=== PATIENT | male | born 1985 | race Caucasian/White ===

== ENCOUNTER → 2017-04-25 10:21 | Outpatient (CLI) | payer OTHER, SELFPAY ==
--- NOTE | 2017-04-25 10:32 | RAD_ITS ---
STUDY: X-RAY - ABDOMEN/PELVIS REASON FOR EXAM: Male, 32 years old. Abdominal pain. TECHNIQUE: AP supine and upright views of the abdomen and pelvis. COMPARISON: None. FINDINGS: Normal visualized lung bases. There is a moderate amount of colonic fecal material. There is no demonstrated free abdominal air. The visualized liver, spleen and kidneys are grossly normal in size and morphology. Normal soft tissue structures. Normal visualized osseous structures. RAD/Abd Inc Decub and/or Erect IMPRESSION: Moderate amount of fecal material is seen in the colon. Electronically Signed: Patrick Frye MD at 15:55 EST Tel [phone], Service support ,
== END ==
PROVIDERS: Family Provider Family Medicine; PCP Family Medicine; Visit Provider Family Medicine
DX: R10.9 Unspecified abdominal pain (principal)
CPT/HCPCS: 74019

== ENCOUNTER → 2017-07-21 11:34 | Outpatient (CLI) | payer OTHER, SELFPAY ==
[2017-07-21 14:15] LABS: Absolute Lymphocyte Count 1.96 X10^3/ul (0.83-4.51); Basophil# 0.03 X10^3/uL; Basophil% 0.4 % (0-1); Eosinophil# 0.21 X10^3/uL; Eosinophils% 3.1 % (0-5); Hematocrit 43.6 % (40-54); Hemoglobin 14.6 g/dl (13.0-16.5); Lymphocyte # 1.96 X10^3/ul (4.0); Lymphocyte % 29.1 % (19-41); Mean Corp Hgb Conc 33.5 g/gl (32-36); Mean Corpuscular Hgb 26.7 pg (27.0-32.0); Mean Corpuscular Volume 79.9 fL (80-94); Mean Platelet Vol. 9.5 fl (6.2-12.0); Monocyte# 0.51 X10^3/uL; Monocyte% 7.6 % (0-10); Neutrophil # 4.01 X10^3/uL (2.7-7.7); Neutrophil % 59.7 % (47-70); Platelet Count 328 K/mm3 (150-450); RBC Distribution Width CV 13.7 % (11.6-14.6); RBC Distribution Width SD 39.6 fl (35.1-43.9); Red Blood Count 5.46 M/mm3 (4.6-6.2); White Blood Count 6.7 K/mm3 (4.4-11.0)
[2017-07-21 14:19] LABS: POSITIVE COUNT NO; POSITIVE DIFFERENTIAL NO; POSITIVE MORPHOLOGY NO
[2017-07-21 14:25] LABS: Internal QC Validated? YES +Cl - CLEAR BKGD; Monotest Negative (Negative); Record Kit Lot#, Mono 13171517
[2017-07-21 14:31] LABS: AST(SGOT) 20 U/L (15-37); Alanine Aminotransfer ALT/SGPT 29 U/L (16-61); Albumin, Serum 3.9 g/dL (3.2-5.0); Alkaline Phosphatase 159 U/L (45-117); Anion Gap 6 (5-15); BUN 8 mg/dL (7-18); BUN/Creat Ratio 10.4 RATIO (10-20); Calcium,Total 8.9 mg/dL (8.5-10.1); Chloride 108 mmol/L (98-107); Creatinine, Serum 0.77 mg/dL (0.70-1.30); EST Glomerular Filtration Rate 126 mL/min (>60); Est Glom Filt Rate - Afr Amer 152 mL/min (>60); Glucose 86 mg/dL (74-106); Protein, Total 7.9 g/dL (6.4-8.2); Sodium Level 139 mmol/L (136-145); Thyroid Stim Hormone (TSH) 1.12 uIU/mL (0.358-3.74)
== END ==
PROVIDERS: Family Provider Family Medicine; PCP Family Medicine; Visit Provider Family Medicine
DX: R53.81 Other malaise (principal); R53.83 Other fatigue
CPT/HCPCS: 36415; 80053; 84443; 85025; 86308

== ENCOUNTER → 2018-07-14 | Outpatient (CLI) | payer OTHER, SELFPAY ==
[2018-07-14 12:37] LABS: Absolute Lymphocyte Count 2.09 X10^3/ul (0.83-4.51); Absolute Neutrophil Count 5.4 X10^3/uL (2.0-7.7); Basophil# 0.04 X10^3/uL; Basophil% 0.5 % (0-1); Eosinophil# 0.15 X10^3/uL; Eosinophils% 1.8 % (0-5); Hematocrit 42.2 % (40-54); Hemoglobin 13.7 g/dl (13.0-16.5); Lymphocyte # 2.09 X10^3/ul (4.0); Lymphocyte % 25.2 % (19-41); Mean Corp Hgb Conc 32.5 g/gl (32-36); Mean Corpuscular Hgb 26.1 pg (27.0-32.0); Mean Corpuscular Volume 80.5 fL (80-94); Mean Platelet Vol. 9.5 fl (6.2-12.0); Monocyte# 0.64 X10^3/uL; Monocyte% 7.7 % (0-10); Neutrophil # 5.38 X10^3/uL (2.7-7.7); Neutrophil % 64.7 % (47-70); Platelet Count 315 K/mm3 (150-450); RBC Distribution Width CV 13.8 % (11.6-14.6); RBC Distribution Width SD 40.4 fl (35.1-43.9); Red Blood Count 5.24 M/mm3 (4.6-6.2); White Blood Count 8.3 K/mm3 (4.4-11.0)
[2018-07-14 12:47] LABS: POSITIVE COUNT NO; POSITIVE DIFFERENTIAL NO; POSITIVE MORPHOLOGY NO
[2018-07-14 12:51] LABS: ALB/GLOB Ratio 1.1 RATIO (0.9-2.4); AST(SGOT) 26 U/L (15-37); Alanine Aminotransfer ALT/SGPT 49 U/L (16-61); Albumin, Serum 3.8 g/dL (3.2-5.0); Alkaline Phosphatase 156 U/L (45-117); Anion Gap 10 (5-15); BUN 15 mg/dL (7-18); BUN/Creat Ratio 20.5 RATIO (10-20); Calcium,Total 8.7 mg/dL (8.5-10.1); Chloride 106 mmol/L (98-107); Creatinine, Serum 0.73 mg/dL (0.70-1.30); EST Glomerular Filtration Rate 132 mL/min (>60); Est Glom Filt Rate - Afr Amer 160 mL/min (>60); Globulin 3.6 g/dL (2.2-4.2); Glucose 89 mg/dL (74-106); Potassium 3.8 mmol/L (3.5-5.1); Protein, Total 7.4 g/dL (6.4-8.2); Sodium Level 141 mmol/L (136-145); Thyroid Stim Hormone (TSH) 2.35 uIU/mL (0.358-3.74)
[2018-07-14 13:00] LABS: Internal QC Validated? YES +Cl - CLEAR BKGD; Monotest Negative (Negative)
[2018-07-14 14:27] LABS: GGTP 23 U/L (15-85)
== END | disposition home or self-care (01) ==
LOC: MFPLAB 09:36
PROVIDERS: Family Provider Family Medicine; PCP Family Medicine; Referring Provider Family Medicine; Visit Provider Family Medicine
DX: R35.0 Frequency of micturition (principal); R53.81 Other malaise
CPT/HCPCS: 36415; 80053; 82977; 84443; 85025; 86308; 87077; 87086; 87088; 87186

== ENCOUNTER → 2018-08-18 | Outpatient (CLI) | payer OTHER, SELFPAY ==
[2018-08-18 17:57] LABS: GGTP 22 U/L (15-85)
== END | disposition home or self-care (01) ==
LOC: LAB.FUTURE 15:08
PROVIDERS: Family Provider Family Medicine; PCP Family Medicine; Referring Provider Family Medicine; Visit Provider Family Medicine
DX: R74.8 Abnormal levels of other serum enzymes (principal)
CPT/HCPCS: 36415; 82977

== ENCOUNTER → 2018-08-31 | Outpatient (CLI) | payer OTHER, SELFPAY ==
--- NOTE | 2018-08-31 09:51 | US_ITS ---
STUDY: ABDOMINAL ULTRASOUND - RIGHT UPPER QUADRANT REASON FOR VISIT: Male, 33 years old. Elevated liver labs TECHNIQUE: Ultrasound evaluation of the right upper quadrant was performed with real-time and static chavez-scale imaging. TECHNICAL QUALITY: Adequate. COMPARISON: None. FINDINGS: Liver: The liver measures 17 cm. There is increased hepatic echogenicity. The bile ducts are within normal limits. There is hepatic color flow. The direction of portal flow is hepatopetal. There is no demonstrated mass lesion. Gallbladder: Normal distended gallbladder. The gallbladder wall measures 3 mm. There is a negative sonographic Waldrop's sign. There is no pericholecystic fluid. There are no gallstones. Common Bile Duct (C.B.D.): The common bile duct measures 4 mm. Pancreas: Not visualized. Right Kidney: Normal size of the right kidney. The right kidney measures 13 cm. Normal renal cortex. There is no demonstrated renal mass or cyst. There is no right hydronephrosis. US/Abdomen Limited IMPRESSION: Fatty liver. No hepatic lesions identified. Electronically Signed: Israel Estrella, at 17:38 EDT Tel , Service support ,
== END | disposition home or self-care (01) ==
LOC: US 09:45
PROVIDERS: Family Provider Family Medicine; PCP Family Medicine; Referring Provider Family Medicine; Visit Provider Family Medicine
DX: R74.8 Abnormal levels of other serum enzymes (principal)
CPT/HCPCS: 76705

== ENCOUNTER → 2018-09-28 | Outpatient (CLI) | payer OTHER, SELFPAY ==
--- NOTE | 2018-09-28 07:58 | CT_ITS ---
STUDY: CT BRAIN WITHOUT CONTRAST REASON FOR EXAM: Male, 33 years old. Migraine headaches RADIATION DOSAGE (If Supplied By Facility): CTDIvol = ( 44.99 ) mGy, DLP = ( 762.36 ) mGycm TECHNIQUE: Transaxial CT imaging of the brain was performed without administration of intravenous contrast material. Individualized dose optimization techniques were used for this CT. COMPARISON: No relevant priors. FINDINGS: Normal soft tissue structures. Normal calvarium. Normal size ventricles and extra-axial spaces for the patient's age. Normal white matter tracts of the cerebral hemispheres. Normal basal ganglia and thalami. Normal brainstem. Normal cerebellum. There is no intracranial hemorrhage. There are no findings of an acute ischemic infarction. Normal visualized paranasal sinuses. CT/Brain/Head without Contrast IMPRESSION: Normal unenhanced CT scan of the brain. Electronically Signed: Charles Osborne MD at 16:23 EDT , Service support ,
== END | disposition home or self-care (01) ==
PROVIDERS: Family Provider Family Medicine; PCP Family Medicine; Referring Provider Psychiatry & Neurology Neurology; Visit Provider Psychiatry & Neurology Neurology
DX: G43.909 Migraine, unspecified, not intractable, without status migrainosus (principal)
CPT/HCPCS: 70450

== ENCOUNTER → 2019-04-23 | Outpatient (CLI) | payer OTHER, SELFPAY ==
[2019-04-23 12:32] LABS: Absolute Neutrophil Count 4.6 X10^3/uL (2.0-7.7); Basophil# 0.04 X10^3/uL; Basophil% 0.6 % (0-1); Eosinophil# 0.18 X10^3/uL; Eosinophils% 2.6 % (0-5); Hematocrit 44.3 % (40-54); Lymphocyte % 24.5 % (19-41); Mean Corp Hgb Conc 31.6 g/dL (32-36); Mean Corpuscular Hgb 25.6 pg (27.0-32.0); Mean Corpuscular Volume 81.1 fL (80-94); Mean Platelet Vol. 9.6 fl (6.2-12.0); Monocyte# 0.42 X10^3/uL; NRBC Flagged by Analyzer 0 % (0-5); Neutrophil # 4.59 X10^3/uL (2.7-7.7); Platelet Count 331 K/mm3 (150-450); RBC Distribution Width CV 13.6 % (11.6-14.6); RBC Distribution Width SD 39.4 fl (35.1-43.9); Red Blood Count 5.46 M/mm3 (4.6-6.2)
[2019-04-23 13:13] LABS: AST(SGOT) 19 U/L (15-37); Alanine Aminotransfer ALT/SGPT 29 U/L (16-61); Albumin, Serum 3.7 g/dL (3.2-5.0); Alkaline Phosphatase 153 U/L (45-117); Anion Gap 5 (5-15); BUN 10 mg/dL (7-18); BUN/Creat Ratio 12.7 RATIO (10-20); Calcium,Total 8.9 mg/dL (8.5-10.1); Chloride 110 mmol/L (98-107); Creatinine, Serum 0.79 mg/dL (0.70-1.30); EST Glomerular Filtration Rate 120 mL/min (>60); Est Glom Filt Rate - Afr Amer 146 mL/min (>60); Globulin 3.7 g/dL (2.2-4.2); Glucose 94 mg/dL (74-106); Potassium 3.8 mmol/L (3.5-5.1); Protein, Total 7.4 g/dL (6.4-8.2); Sodium Level 140 mmol/L (136-145); Thyroid Stim Hormone (TSH) 1.34 uIU/mL (0.358-3.74)
== END | disposition home or self-care (01) ==
LOC: MFPLAB 10:38
PROVIDERS: PCP Family Medicine; Referring Provider Family Medicine; Visit Provider Family Medicine
DX: R00.2 Palpitations (principal)
CPT/HCPCS: 36415; 80053; 84443; 85025

== ENCOUNTER → 2019-05-07 | Outpatient (CLI) | payer OTHER, SELFPAY ==
[2019-04-27 11:30] VITALS: BMI 46.4
--- NOTE | 2019-05-07 12:51 | ECHOCS_ITS ---
Reason For Study: Palpitations Procedure This was a 2D Doppler, Color Flow transthoracic echocardiogram. Contrast injection was performed. Exam performed in department. Left Ventricle Normal LV size. The estimated ejection fraction is 55 %. No evidence for diastolic dysfunction. No regional wall motion abnormalities noted. Right Ventricle Normal RV size. Normal systolic function. Atria The left atrium is moderately enlarged. Normal right atrium. No doppler evidence for ASD. Mitral Valve There is no mitral valve stenosis. Trivial mitral valve insufficiency. Tricuspid Valve There is no tricuspid stenosis. Trivial tricuspid valve insufficiency. Unable to estimate RV systolic pressure due to insufficient tricuspid regurgitant envelope. Aortic Valve Trisinus/trileaflet aortic valve. There is no aortic stenosis. No aortic valve insufficiency. Pulmonic Valve There is no pulmonic valvular stenosis. No pulmonic valve insufficiency. Great Vessels Normal aortic root. Pericardium/Pleural No pericardial effusion. Medication Diluted definity 3ml given slow IV push to enhance endocardial definition. MMode/2D Measurements & Calculations LVIDd: 4.9 cm IVSd: 1.0 cm Ao root diam: 2.9 cm LVIDs: 2.5 cm LVPWd: 1.0 cm RVDd: 3.9 cm FS: 48.8 % LAV(MOD-bp): 84.2 ml LVAd ap4: 42.9 cm2 SV(MOD-sp4): 91.4 ml LAV(MOD-bp) Indexed: 31.0 ml/m2 EDV(MOD-sp4): 164.4 ml LAV(MOD-sp2): 76.0 ml EDV(sp4-el): 169.9 ml LAV(MOD-sp4): 77.2 ml LVAs ap4: 26.4 cm2 ESV(MOD-sp4): 73.0 ml ESV(sp4-el): 73.3 ml EF(MOD-sp4): 55.6 % EF(sp4-el): 56.8 % SV(sp4-el): 96.6 ml LA A4 area: 24.4 cm2 LA dimension(2D): 4.9 cm RA A4 area: 18.9 cm2 Doppler Measurements & Calculations MV A max alex: 59.6 cm/sec Lat Peak E' Alex: 13.5 cm/sec Med Peak E' Alex: 7.9 cm/sec MV P1/2t max alex: 94.0 cm/sec Ao V2 max: 130.5 cm/sec LV V1 max: 98.5 cm/sec Ao max P.8 mmHg LV V1 max P.9 mmHg Ao V2 mean: 88.9 cm/sec Ao mean P.6 mmHg Ao V2 VTI: 26.2 cm PA V2 max: 121.9 cm/sec TR max alex: 207.4 cm/sec TR max P.2 mmHg Interpretation Summary The estimated ejection fraction is 55 %. No evidence for diastolic dysfunction. The left atrium is moderately enlarged. Trivial tricuspid valve insufficiency. Trivial mitral valve insufficiency. Ordering Physician: China Whitley Referring Physician: China Whitley Performed By: Bev Cobos, RDCS, RVT
== END | disposition home or self-care (01) ==
PROVIDERS: PCP Family Medicine; Referring Provider Specialist; Visit Provider Specialist
DX: R00.2 Palpitations (principal); R07.9 Chest pain, unspecified
CPT/HCPCS: 93306; Q9957; A4216; C8929

== ENCOUNTER 2019-08-09 08:33 | Emergency (ER) | payer OTHER, SELFPAY ==
[2019-06-08 11:10] VITALS: BMI 46.5
[2019-08-09 08:34] VITALS: BP 161/97; PULSE 97; RESP 16; TEMP 36.9; O2SAT 95; BMI 44.9
[2019-08-09 08:41] VITALS: BP 161/97; PULSE 97; RESP 16; TEMP 36.9; O2SAT 95
--- NOTE | 2019-08-09 08:51 | ED.DCSUM_ITS ---
History of Present Illness Chief Complaint: Flank Pain Onset: Today Narrative: Patient presents for the evaluation of right flank pain. He was seen him [facility] on 06 Aug 2019 was diagnosed with a mid ureteral 5 mm right kidney stone. States he has been on Percocet Flomax and nausea medication. He continues to have vomiting and pain. He has had a prior kidney stone was able to pass. He does not see a urologist. He states that last night he was feeling very hot and states he had 102 fever. No cough or shortness of breath or URI symptoms. He denies any foul smell to the urine. No diarrhea. Past Medical History - Allergies and Home Meds Allergies/Adverse Reactions: Allergies No Known Allergies Allergy (Unverified 08/09/19 08:39) Primary Care Physician: Marley Liao MD [Primary Care Provider] - Smoking Status: Never smoker Review of Systems General: Reports: Fever. Denies: Chills, Sweats Eyes: Denies: Visual changes - bilaterally, Diplopia ENT: Denies: Rhinorrhea, Sore throat Cardiovascular: Denies: Chest pain, Palpitations Respiratory: Denies: Dyspnea, Cough, Dyspnea on exertion Gastrointestinal: Reports: Abdominal pain - Right flank pain radiating to the r ight mid abdomen, Nausea, Vomiting. Denies: Diarrhea, Melena, Hematochezia Genitourinary: Denies: Dysuria, Hematuria, Frequency Musculoskeletal: Denies: Back pain, Extremity Pain Skin: Denies: Rash, Wounds Neurological: Denies: Headache, Weakness, Numbness Physical Exam Vital Signs/Narrative: Vital Signs Temp Pulse Resp BP Pulse Ox 08/09/19 08:41 98.4 F 97 16 161/97 H 95 08/09/19 08:34 98.4 F 97 16 161/97 H 95 Inital Vital Signs reviewed: Yes General: Well nourished, Well developed, Obese, No Acute Distress Head: Normocephalic, Atraumatic Eyes: Perrl, EOMI ENT: Moist mucous membranes, No rhinorrhea Neck: Supple, Nontender Cardiovascular: Regular rate, Regular rhythm, No murmurs Respiratory: No distress, CTA bilaterally, Chest nontender Abdomen: Soft, Nontender, Nondistended, Normal bowel sounds Back: Nontender, Normal Inspection Extremities: Nontender, No edema Skin: Normal color, No rash Neurological: Alert, Oriented x3, Cranial nerves II-XII grossly intact, Normal Strength, Normal Sensation Psychological: Normal affect, Normal Mood Diagnostic/Tx/Re-eval - Medical Decision Making Patient's creatinine has risen slightly from 0.7-1.1. His urine is normal. His pain is improved with morphine and Zofran and Toradol. I will refer him to urology. He understands that a 5 mm mid ureteral stone may require surgery but still needs time to see if it will pass. I will write some additional Percocet at a more appropriate dose than 1 per every 8 hours. As Zofran was not helping his nausea I will write for Phenergan. ED Disposition - Plan for ED Patient: Disposition: Home or Assisted Living Diagnosis: Ureterolithiasis, Right flank pain, Vomiting Instructions: ED Renal Stone w Colic Prescriptions: Oxycodone HCl/Acetaminophen [Percocet 5/325] 1 - 2 tablet PO Q6H PRN PRN 5 Days #20 tablet PRN Reason: pain Transmission Status: Received by [id number] proMETHazine tablet [Phenergan] 25 mg PO Q6H PRN PRN #20 tab PRN Reason: Nausea Transmission Status: Pending to [id number] Referrals: Christopher Linn MD [STAFF PHYSICIAN] - As soon as possible Additional Instructions: You have a 5 mm right mid ureteral stone. Your creatinine has elevated from 0.7-1.1. There is no evidence of infection in your urine.
[2019-08-09] MEDS: Ondansetron 4 MG/2 ML Vial IV (08:55)
[2019-08-09] MEDS: Morphine 4 MG/ML Syringe IV (08:55)
[2019-08-09] MEDS: Ketorolac 30 MG/ML Syringe IV (08:56)
[2019-08-09] MEDS: 0.9% Normal Saline 1,000 ML 999 ML IV (08:56)
[2019-08-09 08:58] LABS: Absolute Lymphocyte Count 1.46 X10^3/uL (0.83-4.51); Absolute Neutrophil Count 8.7 X10^3/uL (2.0-7.7); Basophil# 0.04 X10^3/uL; Basophil% 0.3 % (0-1); Eosinophil# 0.08 X10^3/uL; Eosinophils% 0.7 % (0-5); Hematocrit 37.8 % (40-54); Lymphocyte # 1.46 X10^3/ul (4.0); Lymphocyte % 12.7 % (19-41); Mean Corp Hgb Conc 34.4 g/dL (32-36); Mean Corpuscular Hgb 27.1 pg (27.0-32.0); Mean Corpuscular Volume 78.9 fL (80-94); Mean Platelet Vol. 9.2 fl (6.2-12.0); Monocyte# 1.18 X10^3/uL; Monocyte% 10.3 % (0-10); NRBC Flagged by Analyzer 0 % (0-5); Neutrophil # 8.71 X10^3/uL (2.7-7.7); Neutrophil % 75.8 % (47-70); Platelet Count 262 K/mm3 (150-450); RBC Distribution Width CV 13.1 % (11.6-14.6); RBC Distribution Width SD 37.2 fl (35.1-43.9); Red Blood Count 4.79 M/mm3 (4.6-6.2); White Blood Count 11.5 K/mm3 (4.4-11.0)
[2019-08-09 09:00] LABS: Color, Urine Yellow (Yellow); Glucose, Dipstick Normal (Normal); Leukocyte Esterase-Dipstick 25 /ul (Negative); Nitrite-Dipstick Negative (Negative); Occult Blood-Urine 50 /ul (Negative); Protein-Dipstick 30 mg/dl (Negative); Specific Gravity, Urine 1.025 (1.002-1.030); Urine Bilirubin Dipstick Negative (Negative); Urine Clarity Sl. Cloudy (Clear); Urine Urobilinogen 1 mg/dl (Normal)
[2019-08-09 09:03] LABS: Ketone-Dipstick 150 mg/dl (Negative)
[2019-08-09 09:06] LABS: Bacteria 1+ /hpf (None Seen); Mucous, Urine 1+ /hpf (<or=2+); Red Blood Cells-Urine 0-5 SEEN /hpf (0-5); Squamous Epithelial Cells - UA 0-5 SEEN /hpf (0-5); White Blood Cells 0-5 SEEN /hpf (0-5)
[2019-08-09 09:12] LABS: Anion Gap 8 (5-15); BUN 10 mg/dL (7-18); BUN/Creat Ratio 8.6 RATIO (10-20); Calcium,Total 9.1 mg/dL (8.5-10.1); Chloride 106 mmol/L (98-107); Creatinine, Serum 1.16 mg/dL (0.70-1.30); EST Glomerular Filtration Rate 77 mL/min (>60); Est Glom Filt Rate - Afr Amer 93 mL/min (>60); Estimated Creatinine Clearance 105.31 ml/min; Glucose 92 mg/dL (74-106); Potassium 3.7 mmol/L (3.5-5.1); Sodium Level 138 mmol/L (136-145)
[2019-08-09 09:54] VITALS: BP 161/97; PULSE 97; RESP 16; TEMP 36.9; O2SAT 95
--- NOTE | 2019-08-09 10:02 | ED.RN ---
ESTABLISHED PERIPHERAL LINE INFILTRATED. NORMAL SALINE EXTRAVASATED IN LEFT ANTECUBITAL AREA. PT DENIES PAIN. COLD COMPRESS APPLIED, FLUIDS DISCONTINUED. WILL CONTINUE TO MONITOR.
== END 2019-08-09 10:31 | disposition home or self-care (01) ==
PROVIDERS: Emergency Provider Emergency Medicine; PCP Family Medicine
DX: N20.1 Calculus of ureter (principal); R11.10 Vomiting, unspecified; E66.9 Obesity, unspecified; Z79.899 Other long term (current) drug therapy
CPT/HCPCS: 80048; 81001; 85025; 96361; 96374; 96375; 99283; J7030; A4216; J2405

== ENCOUNTER → 2019-08-18 10:45 | Outpatient (CLI) | payer OTHER, SELFPAY ==
[2019-08-09 08:34] VITALS: BMI 44.9
--- NOTE | 2019-08-18 07:45 | RAD_ITS ---
STUDY: X-RAY - ABDOMEN/PELVIS REASON FOR EXAM: Male, 34 years old. PRE OP, RIGHT SIDE KIDNEY STONE TECHNIQUE: Single AP view of the abdomen / pelvis. COMPARISON: Comparison is made with prior study dated April 25, 2017. FINDINGS: There is a moderate amount of colonic fecal material. 8.7 mm x 1 mm calcification overlying the transverse process of the L3 vertebra on the right side. This may represent a mid right ureteral calculus. Normal soft tissue structures. Normal visualized osseous structures. RAD/Abdomen Single View IMPRESSION: Findings suggestive of a 8.7 mm x 1 mm calculus in the midportion of the right ureter. Electronically Signed: Patrick Frye, at 13:23 EDT , Service support ,
[2019-08-18 09:04] VITALS: BP 140/91; PULSE 102; RESP 16; TEMP 35.8; O2SAT 95; BMI 45.1
[2019-08-18] MEDS: Lactated Ringers 1,000 ML 100 ML IV (09:18)
--- NOTE | 2019-08-18 12:37 | SUR.PREOP ---
KUB CAME BACK THAT PATIENT HAD PASSED STONE, HAS ANOTHER ONE IN KIDNEY BUT IT IS NOT CAUSING PAIN HE HAS OPTED TO HAVE NO PROCEDURE DONE TODAY. DCD HOME.
== END ==
LOC: SDC 08:36 → PAT 09-16 10:05
PROVIDERS: PCP Family Medicine; Referring Provider Urology; Visit Provider Urology
DX: N20.0 Calculus of kidney (principal); Z11.59 Encounter for screening for other viral diseases
CPT/HCPCS: 74018; 87635; G2023; J7120; U0004

== ENCOUNTER → 2019-08-30 10:35 | Outpatient (CLI) | payer OTHER, SELFPAY ==
[2019-08-18 09:04] VITALS: BMI 45.1
--- NOTE | 2019-08-30 10:38 | RAD_ITS ---
STUDY: X-RAY - ABDOMEN/PELVIS REASON FOR EXAM: Male, 34 years old. KIDNEY STONE RT TECHNIQUE: Single AP view of the abdomen / pelvis. COMPARISON: Comparison is made with prior study dated August 18, 2019. FINDINGS: There is a moderate amount of colonic fecal material. Persistent 6 mm calcification in the right mid abdomen overlying the transverse process of the L3 vertebrae. Normal soft tissue structures. Normal visualized osseous structures. RAD/Abdomen Single View IMPRESSION: 6 mm calcification in the right mid abdomen overlying the transverse process of the right L3 vertebrae. Electronically Signed: Patrick Frye, at 15:17 EDT , Service support ,
== END ==
PROVIDERS: PCP Family Medicine; Referring Provider Urology; Visit Provider Urology
DX: N20.1 Calculus of ureter (principal)
CPT/HCPCS: 74018

== ENCOUNTER 2019-09-03 10:34 | Day surgery (SDC) | payer OTHER, SELFPAY ==
[2019-08-18 09:04] VITALS: BMI 45.1
--- NOTE | 2019-09-03 10:30 | RAD_ITS ---
STUDY: X-RAY - ABDOMEN/PELVIS REASON FOR EXAM: Male, 34 years old. RT SIDE K.S. PRE-OP TECHNIQUE: Single AP view of the abdomen / pelvis. COMPARISON: Comparison is made with prior study dated August 30, 2019. FINDINGS: There is a moderate amount of colonic fecal material. Stable linear 6 mm calcification in the right mid abdomen overlying the transverse process of the L3 vertebrae. Normal soft tissue structures. Normal visualized osseous structures. RAD/Abdomen Single View IMPRESSION: Stable examination. Stable linear 6 mm calcification in the right mid abdomen overlying the transverse processes of the L3 vertebrae. Electronically Signed: Patrick Frye, at 11:47 EDT , Service support ,
[2019-09-03 11:14] VITALS: BP 152/88; PULSE 83; RESP 16; TEMP 36.9; O2SAT 94; BMI 45.6
[2019-09-03] MEDS: Lactated Ringers 1,000 ML 100 ML IV ×2 (11:19→14:35)
--- NOTE | 2019-09-03 12:43 | PCM.HP.STD ---
Problem List (1) Right ureteral calculus Status: Acute History of Present Illness Date of Admission: 09/03/19 Chief Complaint: Right ureteral calculi and renal calculi The patient is a 34 year old male who has failed to pass a stone in the mid right ureter after conservative course of observation. He now presents for treatment of the stone with shockwave lithotripsy and also treatment of stone in the kidney with shockwave lithotripsy will place a stent. Past Medical History Medical History: Medical History (Last Reviewed 06/08/19 @ 15:[address] China Whitley MD) Palpitations (Resolved) R00.2 Obesity E66.9 Chest pain (Resolved) R07.9 History of kidney stones Z87.442 Allergies No Known Allergies Allergy (Unverified 09/03/19 11:01) Home Medications: Ambulatory Orders Medication Instructions Recorded NK 09/01/19 Surgical History: Surgical History (Last Reviewed 06/08/19 @ 15:[address] China Whitley MD) History of tonsillectomy Z90.89 Surgical History: no surgical history Smoking Status: Never smoker Tobacco Use: Non-smoker Review of Systems Constitutional: Denies: Chills, Fever, Weight Change HEENT: Denies: Head Aches, Sinus Congestion, Sinus Drainage Cardiovascular: Denies: Chest Pain, Palpitations Respiratory: Denies: Cough, Shortness of breath at rest, Sputum production Gastrointestinal: Denies: Abdominal Pain, Nausea, Vomiting Genitourinary: Denies: Dysuria Musculoskeletal: Denies: Joint Pain, Joint Tenderness Skin: Denies: Rash, Wounds Neurological: Denies: Numbness, Tingling, Focal weakness Psychiatric: Denies: Anxiety, Depression, Homicidal Ideations, Suicidal Ideations Hematologic/ Lymphatic: Denies: Easy Bruising, Easy Bleeding VTE Information - Inpt Only VTE Present on Admission: No VTE Mechan Device Prophylaxis: SCD's Patient Problems: Active and Suspected Problems (Last Reviewed 06/08/19 @ 15:[address] China Whitley MD) Right ureteral calculus (Acute) - Physical Exam Vitals/I&O's: Vital Signs Temp Pulse Resp BP Pulse Ox 98.5 F 83 16 152/88 H 94 09/03/19 11:14 09/03/19 11:14 09/03/19 11:14 09/03/19 11:14 09/03/19 11:14 Oxygen Delivery Method Room Air Weight: 156.9 kg Body Mass Index (BMI) 45.6 General: Alert, Oriented x3, Cooperative HEENT: Atraumatic, PERRLA, EOMI, Normocephalic Neck: Supple, No JVD, Negative Carotid Bruits Lungs: Clear to auscultation, Normal air movement Cardiovascular: Regular rate, No murmurs Abdomen: Bowel Sounds Present, Soft, Non Tender Extremities: No edema, Capillary Refill Less than 3 Seconds Skin: No rashes, No breakdown Musculoskeletal: No Tenderness to Palpation of Joints or Extremities Neurological: Cranial nerves II-XII grossly intact Psych/Mental Status: Normal Affect, Appropriate Laboratory Results 09/02/19 10:10: COVID-19 (MAURICE) Not Detected Current Medications Lactated Ringer's () 1,000 mls @ 100 mls/hr IV .Q10H LOTUS Last Admin: 09/03/19 11:19 Dose: 100 mls/hr Documented by: Assessment/Plan All Active Problems (Last Reviewed 06/08/19 @ 15:[address] China Whitley MD) Right ureteral calculus (Acute) Mitral regurgitation (Acute) Left atrial enlargement (Acute) Palpitations (Resolved) Chest pain (Resolved) Plan to proceed with right stent placement and shockwave lithotripsy.
--- NOTE | 2019-09-03 12:49 | DCINST_ITS ---
Discharge Diet: Light diet - advance as tolerated Discharge Activity: Return to Normal Activity Allergies/Adverse Reactions: Allergies No Known Allergies Allergy (Unverified 09/03/19 11:01) Medications to take at Discharge Cephalexin [Keflex] 500 mg PO Q8 #9 cap 09/03/19 Hydrocodone/Acetaminophen [Packwood 5-325 Tablet] 1 ea PO Q4H PRN PRN 5 Days #14 tab 09/03/19 The following prescriptions were given: Cephalexin [Keflex] 500 mg PO Q8 #9 cap Transmission Status: [id number] Hydrocodone/Acetaminophen [[place]wood 5-325 Tablet] 1 ea PO Q4H PRN PRN 5 Days #14 tab PRN Reason: Pain Score 1-10/10 Transmission Status: Received by [id number] Primary Care Physician: Marley Liao MD [Primary Care Provider] - Test Results: Test results from this visit will be discussed in further detail at your follow- up appointment, if applicable. Please Follow Up With: Christopher Linn MD When: please call to make an appointment.
[2019-09-03] MEDS: Cefazolin 2 GM in 0.9% Normal Saline 100 ML IV (13:04)
--- NOTE | 2019-09-03 14:10 | OP.PCM_ITS ---
Problem List (1) Right ureteral calculus Status: Acute Report of Operation Date of Procedure: 09/03/19 Pre-Operative Diagnosis: Right mid ureteral calculi Post-Operative Diagnosis: Same Surgery/Procedure Performed:: Cystoscopy right stent placement right extracorporeal shockwave lithotripsy Description of Surgical Findings:: 34-year-old male who was seen for a stone in the mid right ureter after conservative course of management he is failed to pass it on his own so today we can proceed proceed with shockwave lithotripsy to break the stone also place a stent. Patient was taken back to the operating room, after smooth induction of general anesthesia, he was placed in dorsolithotomy position, the penis and testicles were prepped and draped in usual sterile fashion, went into the bladder with a 21 Luxembourgish rigid cystourethroscope, the entire length the urethra is normal, pendulous urethra was normal prostate was normal inside the bladder identified the trigone I then cannulated the right ureter orifice with a Glidewire advance a wire up into the kidney and then over the wire advanced a stent is a 6 Luxembourgish by 26 cm stent, left the string on the stent. I then drained the bladder and we then found the stone next of the stent and then proceeded with shockwave lithotripsy under fluoroscopic guidance we placed the stone in the F2 focal point and then deliver 3500 shockwaves to the stone at a rate of 90 between 7 and 9 kV. At the end of the treatment cycle the stone was not visible anymore appeared to fragment completely that the stent in place patient anesthetic was b eing reversed we will see him next week with an x-ray and get the stent out. Type of Anesthesia:: General Drains: right stent - Admit VTE Documentation VTE Present on Admission: No VTE Mechan Device Prophylaxis: SCD's
[2019-09-03 14:22] VITALS: BP 121/80; BP 152/88; PULSE 80; RESP 18; TEMP 36.4; O2SAT 100
[2019-09-03 14:30] VITALS: BP 119/80; BP 152/88; PULSE 78; RESP 16; O2SAT 99
[2019-09-03] MEDS: Ketorolac 15 MG/ML Vial IV (14:34)
[2019-09-03 14:45] VITALS: BP 127/86; BP 152/88; PULSE 74; RESP 18; O2SAT 98
[2019-09-03 14:58] VITALS: BP 136/88; BP 152/88; PULSE 77; RESP 18; TEMP 36.6; O2SAT 100
[2019-09-03 15:35] VITALS: BP 152/88
== END 2019-09-03 15:38 | disposition home or self-care (01) ==
LOC: SDC 10:35 → AC 10:37
PROVIDERS: Anesthesiology; PCP Family Medicine; Referring Provider Urology; Visit Provider Urology
PROC: (CPT 50590; principal; 2019-09-03 12:20)
DX: N20.1 Calculus of ureter (principal); E66.9 Obesity, unspecified; Z11.59 Encounter for screening for other viral diseases; Z87.442 Personal history of urinary calculi; Z68.42 Body mass index [BMI] 45.0-49.9, adult
CPT/HCPCS: 00873; 50590; 52332; 74018; 87635; G2023; J7120; C1769; C2617; J2405; U0003

== ENCOUNTER → 2019-09-07 | Outpatient (CLI) | payer OTHER, SELFPAY ==
[2019-09-03 11:14] VITALS: BMI 45.6
--- NOTE | 2019-09-07 | CALC_PTH ---
PATIENT: ESTHER LERMA LOC: [facility] U#:[id number] AGE/SX: 34/M ROOM: RE09/07/[address]: Dr. Christopher Linn MD : 1985 BED: DIS: 09/07/2019 SPEC #: [id number] RECD: 09/07/19 13:05 STATUS: MARLIN ESPERANZA #: [id number] EVELIN: 09/07/19 00:[address]: Christopher Linn DEPT: SURGICAL PATHOLOGY RECD BY: Sigifredo Null ENTERED: 09/07/19 13:06 SP TYPE: Calculi OTHR DR: Dr. Marley Liao MD Tissues: CALCULI Procedures: Surgery Specimen Level I HEADER OPERATION: Not noted PRE-OP DIAGNOSIS: Kidney stone TISSUE SUBMITTED: Kidney stone for analysis GROSS DIAGNOSIS A fragment of stone, clinically kidney stone, submitted entirely for analysis. SJ:nilam 09/07/19 COMMENT The calculus is submitted in its entirety for chemical stone analysis. The results from this study will be reported separately. GROSS DESCRIPTION Received is one container labeled with the patient's name and designated stone analysis. The specimen consists of a fragment of brownish-black stone measuring 0.4 x 0.3 x 0.3 cm. The entire specimen is submitted for stone analysis. / ALEX:nilam 09/07/19 CPT: 97446
== END | disposition home or self-care (01) ==
LOC: LABSPEC 11:37
PROVIDERS: PCP Family Medicine; Visit Provider Urology
DX: N20.0 Calculus of kidney (principal)
CPT/HCPCS: 88300; 88305; G0416

== ENCOUNTER → 2019-09-08 | Outpatient (CLI) | payer OTHER, SELFPAY ==
[2019-09-03 11:14] VITALS: BMI 45.6
== END | disposition home or self-care (01) ==
LOC: LABSPEC 12:09
PROVIDERS: PCP Family Medicine; Visit Provider Urology
DX: N20.0 Calculus of kidney (principal)
CPT/HCPCS: 82360

== ENCOUNTER → 2019-10-20 | Outpatient (CLI) | payer OTHER, SELFPAY ==
[2019-10-12 10:16] VITALS: BMI 45.6
--- NOTE | 2019-10-20 10:25 | RAD_ITS ---
STUDY: X-RAY - ABDOMEN/PELVIS REASON FOR EXAM: Male, 34 years old. Follow-up kidney stones. TECHNIQUE: Two AP supine views of the abdomen and pelvis. COMPARISON: 09/03/2019. FINDINGS: The lung bases are not included. There is an unremarkable bowel gas pattern. There is no demonstrated free abdominal air. The visualized liver, spleen and kidneys are grossly normal in size and morphology. No renal or ureteral calculi are noted.. Small linear calcification lateral to the right L3 transverse process is no longer present. Normal soft tissue structures. Normal visualized osseous structures. RAD/Abdomen Single View IMPRESSION: Absence of the small calcification seen in the right midabdomen on the prior study. The remainder of the findings are unchanged. Electronically Signed: Keegan Mulligan DO at 17:12 EDT Tel [phone], Service support ,
== END | disposition home or self-care (01) ==
LOC: RAD 10:23
PROVIDERS: PCP Family Medicine; Referring Provider Urology; Visit Provider Urology
DX: N20.1 Calculus of ureter (principal)
CPT/HCPCS: 74018

== ENCOUNTER → 2020-01-28 | Outpatient (CLI) | payer OTHER, SELFPAY ==
[2019-10-12 10:16] VITALS: BMI 45.6
== END | disposition home or self-care (01) ==
LOC: LABSPEC 15:53
PROVIDERS: PCP Family Medicine; Referring Provider Family Medicine; Visit Provider Registered Nurse
DX: U07.1 COVID-19 (principal)
CPT/HCPCS: 87635; U0003

== ENCOUNTER → 2020-06-22 10:50 | Outpatient (CLI) | payer OTHER, SELFPAY ==
[2020-06-22 09:58] VITALS: BMI 46.2
[2020-06-22 12:17] LABS: Anion Gap 5 (5-15); BUN 10 mg/dL (7-18); BUN/Creat Ratio 12.8 RATIO (10-20); Calcium,Total 8.8 mg/dL (8.5-10.1); Chloride 107 mmol/L (98-107); Creatinine, Serum 0.78 mg/dL (0.70-1.30); EST Glomerular Filtration Rate 121 mL/min (>60); Est Glom Filt Rate - Afr Amer 146 mL/min (>60); Glucose 100 mg/dL (74-106); Sodium Level 139 mmol/L (136-145); Thyroid Stim Hormone (TSH) 1.65 uIU/mL (0.358-3.74)
== END ==
LOC: LAB 10:52
PROVIDERS: PCP Family Medicine; Referring Provider Physician Assistant Medical; Visit Provider Physician Assistant Medical
DX: R00.2 Palpitations (principal)
CPT/HCPCS: 36415; 80048; 83735; 84443

== ENCOUNTER 2021-07-13 08:01 | Outpatient (CLI) | payer OTHER, SELFPAY ==
--- NOTE | 2021-07-13 08:03 | ECHOCS_ITS ---
Reason For Study: Palpitations Procedure This was a 2D Doppler, Color Flow transthoracic echocardiogram. The study was technically difficult. Contrast injection was performed. Exam performed in department. Left Ventricle Normal LV size. Left ventricular systolic function is normal. The estimated ejection fraction is 65 %. No evidence for diastolic dysfunction. No regional wall motion abnormalities noted. Right Ventricle Normal RV size. Normal systolic function. Atria The left atrium is mildly enlarged. Normal right atrium. No doppler evidence for ASD. Mitral Valve There is no mitral annular calcification. Normal mitral valve. Trivial mitral valve insufficiency. Tricuspid Valve Normal tricuspid valve. Trivial tricuspid valve insufficiency. Unable to estimate RV systolic pressure/pulmonary artery pressure due to technically difficult study. Aortic Valve Trisinus/trileaflet aortic valve. Normal aortic valve. Pulmonic Valve The pulmonic valve is not well visualized. Trivial pulmonic valve insufficiency. Great Vessels Normal sized aortic root. Pericardium/Pleural No pericardial effusion. Medication Diluted definity 2ml given slow IV push to enhance endocardial definition. MMode/2D Measurements & Calculations LVIDd: 4.2 cm IVSd: 1.2 cm Ao root diam: 3.5 cm LVIDs: 2.8 cm LVPWd: 0.98 cm RVDd: 4.1 cm FS: 33.7 % LAV(MOD-bp): 89.3 ml LVAd ap4: 38.7 cm2 SV(MOD-sp4): 95.0 ml LAV(MOD-bp) Indexed: 33.2 ml/m2 LVLd ap4: 8.6 cm LAV(MOD-sp2): 99.5 ml EDV(MOD-sp4): 140.8 ml LAV(MOD-sp4): 76.6 ml EDV(sp4-el): 147.0 ml LVAs ap4: 19.0 cm2 LVLs ap4: 6.6 cm ESV(MOD-sp4): 45.7 ml ESV(sp4-el): 46.1 ml EF(MOD-sp4): 67.5 % EF(sp4-el): 68.6 % SV(sp4-el): 100.9 ml LA A4 area: 23.8 cm2 RA A4 area: 18.7 cm2 Doppler Measurements & Calculations MV E max alex: 79.1 cm/sec Lat Peak E' Alex: 13.8 cm/sec Med Peak E' Alex: 7.1 cm/sec MV A max alex: 58.2 cm/sec E/E' lat: 5.7 E/E' med: 11.1 MV E/A: 1.4 Ao V2 max: 127.3 cm/sec LV V1 max: 107.8 cm/sec PA V2 max: 104.9 cm/sec Ao max P.5 mmHg LV V1 max P.7 mmHg Ao V2 mean: 88.6 cm/sec Ao mean P.5 mmHg Ao V2 VTI: 27.4 cm ECHO/Echo Complete W/ Contrast Interpretation Summary The study was technically difficult. Contrast injection was performed. Left ventricular systolic function is normal. The estimated ejection fraction is 65 %. The left atrium is mildly enlarged. Trivial mitral valve insufficiency. Trivial tricuspid valve insufficiency. Trivial pulmonic valve insufficiency. Unable to estimate RV systolic pressure/pulmonary artery pressure due to techni olaf difficult study. No evidence for diastolic dysfunction. Ordering Physician: Raj Berrios Referring Physician: Marley Liao Performed By: Bev Cobos, ARIELLE, RVT
== END 2021-07-13 23:59 | disposition home or self-care (01) ==
LOC: CVS 08:02
PROVIDERS: PCP Family Medicine; Referring Provider Internal Medicine Cardiovascular Disease; Visit Provider Internal Medicine Cardiovascular Disease
DX: I51.7 Cardiomegaly (principal); R00.2 Palpitations
CPT/HCPCS: 93306; Q9957; A4216; C8929

== ENCOUNTER → 2025-01-14 | Outpatient (CLI) | payer OTHER, SELFPAY ==
[2025-01-14 15:06] LABS: Hematocrit 41.5 % (40-54); Hemoglobin 13.6 g/dL (13.0-16.5); Mean Corp Hgb Conc 32.8 g/dL (32-36); Mean Corpuscular Volume 79.7 fL (80-94); Mean Platelet Vol. 9.4 fl (6.2-12.0); Platelet Count 323 K/mm3 (150-450); RBC Distribution Width CV 13.9 % (11.6-14.6); RBC Distribution Width SD 40.4 fl (35.1-43.9); Red Blood Count 5.21 M/mm3 (4.6-6.2); White Blood Count 7.3 K/mm3 (4.4-11.0)
[2025-01-14 15:42] LABS: AST(SGOT) 22 U/L (<=37); Alanine Aminotransfer ALT/SGPT 17 U/L (<=46); Albumin, Serum 4.2 g/dL (3.5-5.0); Alkaline Phosphatase 139 U/L (40-129); Anion Gap 11 (5-15); BUN 9 mg/dL (4-19); BUN/Creat Ratio 13.3 RATIO (10-20); Calcium,Total 9.3 mg/dL (7.6-11.0); Carbon Dioxide 22.6 mmol/L (21.0-32.0); Chloride 106 mmol/L (98-108); Cholesterol 151 mg/dL (<=200); Globulin 3.1 g/dL (2.2-4.2); Glucose 82 mg/dL (70-99); Low Density Lipoprotein Calc. 92 mg/dL; Potassium 4.0 mmol/L (3.3-5.1); Triglycerides 81 mg/dL; Very Low Density Lipoprotein 16 mg/dL (5-40); Vitamin D,25 Hydroxy 22.5 ng/mL (30-100); cholesterol:hdl ratio screen 3.48
== END | disposition home or self-care (01) ==
LOC: MFPLAB 11:19
PROVIDERS: PCP Family Medicine; Visit Provider Family Medicine
DX: Z13.1 Encounter for screening for diabetes mellitus (principal); E66.01 Morbid (severe) obesity due to excess calories; R00.2 Palpitations; Z13.220 Encounter for screening for lipoid disorders
CPT/HCPCS: 36415; 80053; 80061; 82306; 84443; 85027